=== PATIENT | female | born 1940 | race Two or more races ===

== ENCOUNTER 2017-05-26 13:05 | Outpatient (CLI) | payer MEDICARE, MEDICAID ==
[2017-05-26] MEDS ORDERED: LISINOPRIL-HCT1 EACH ORAL (14:46)
[2017-05-26] MEDS ORDERED: METFORMIN HCL1000 M1 ORAL (14:46)
[2017-05-26] MEDS ORDERED: UNOBMED (14:46)
--- NOTE | 2017-05-26 14:50 | GI Initial Consult Note ---
History of Present Illness General Date patient seen: May 26, 2017 Time patient seen: 13:00 Referring physician: KAYLA Reason for Consultation: CONSTIPATION Present Illness HPI 76 year of female referred by Dr. Victor for evaluation of constipation. Pt states she has been taking senna terminal system operator that has been both under and over effective. 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 Also history of hemorrhoids which has been bothering her recently. The patient also c/o that miralax has caused her to have abdominal bloating. Denies any weight loss or changes in dietary habits. Home Meds Reported Medications Unable to Obtain Medications (UNABLE TO OBTAIN MEDS) 1 Ea Ea 05/26/17 Lisinopril/Hydrochlorothiazide 10-12.5 Mg Tab (LISINOPRIL-HCTZ 10-12.5 MG TAB) Unknown Strength Tablet, ORAL DAILY, TAB 05/26/17 Metformin Hcl* (METFORMIN HCL*) 1,000 Mg Tablet, 1000 MG ORAL DAILY, TAB 05/26/17 Med list reviewed/reconciled: Yes Allergies: Coded Allergies: No Known Allergies (Unverified , 05/26/17) Patient History History Provided By: Patient, Family Member, Medical Record PMH Narrative DM HTN Eye HTN elevated cholesterol PSHx None Unable to recall medications for eye, cholesterol, and lipid. Social History: Reports: other - coffee Review of Systems All Other Systems: negative except mentioned in HPI Physical Exam T 98.0 BP 147/88 P 71 97 RA Sp02 EP Interpretation: reviewed General Appearance: well appearing, no apparent distress, alert Head: normocephalic EENT: PERRL/EOMI, normal ENT inspection, TMs normal Neck: full range of motion, supple Respiratory: normal breath sounds, no respiratory distress Cardiovascular: normal rate Gastrointestinal: non tender, normal bowel sounds Rectal: deferred Genitourinary: no CVA tenderness Musculoskeletal: normal inspection, back normal, digits/nails normal Neurologic: normal inspection, alert, oriented x3, responsive Psychiatric: normal inspection, judgement/insight normal, memory normal Skin: normal inspection, normal color, no rash, warm/dry, palpation normal Lymphatic: normal inspection, no adenopathy GI: Plan Problems: (1) Diabetes mellitus (2) HTN (hypertension) (3) Colonoscopy planned (4) Rectal disorder Plan EGD/colonoscopy scheduled for 06/07/17 - CLD & TriLyte/Suprep instructions given and acknowledged. Rx Linsantoss, Anusol HC Kegal exercises educated Seen with Dr. Bond. Thank you for referring this patient. Rachel Rice N.P. May 26, 2017 14:50
== END 2017-05-26 14:20 | disposition home or self-care (01) ==
LOC: PAN 13:05
DX: K59.00 Constipation, unspecified (principal); K62.89 Other specified diseases of anus and rectum; E11.9 Type 2 diabetes mellitus without complications; I10 Essential (primary) hypertension
CPT/HCPCS: 99201